=== PATIENT | female | born 2000 ===

== ENCOUNTER 2025-01-22 15:35 | Emergency (ER) | payer OTHER, SELFPAY ==
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
[2025-01-22 15:47] VITALS: BP 190/130; PULSE 87; O2SAT 99; BMI 41.1
[2025-01-22 15:50] VITALS: BP 147/97; PULSE 88; RESP 20; TEMP 36.7; O2SAT 94
--- NOTE | 2025-01-22 16:52 | PC.NURSE ---
pt medicated for 8/10 posterior head/neck pain
[2025-01-22 18:51] VITALS: BP 134/90; PULSE 72; RESP 18; TEMP 36.2; O2SAT 97
[2025-01-22 19:39] VITALS: BP 134/90; PULSE 72; RESP 18; TEMP 36.2; O2SAT 97
== END 2025-01-22 19:39 | disposition home or self-care (01) ==
PROVIDERS: Emergency Provider Emergency Medicine
DX: S16.1XXA Strain of muscle, fascia and tendon at neck level, initial encounter (principal); M79.602 Pain in left arm; V43.52XA Car driver injured in collision with other type car in traffic accident, initial encounter; Y93.89 Activity, other specified; Y92.488 Other paved roadways as the place of occurrence of the external cause; Y99.8 Other external cause status
CPT/HCPCS: 70450; 72125; 96372; 99284; J1885

== ENCOUNTER → 2025-01-22 15:48 | Outpatient (BNV) | payer BC, SELFPAY | PROVIDERS: Emergency Provider Emergency Medicine; Visit Provider Radiology Diagnostic Radiology | DX: M54.2 Cervicalgia (principal); S09.90XA Unspecified injury of head, initial encounter | CPT/HCPCS: 70450; 72125 ==